=== PATIENT | female | born 1995 ===

== ENCOUNTER 2024-10-25 14:17 | Outpatient (CLI) | payer OTHER, BC, SELFPAY ==
--- NOTE | ~2024-10-25 | MR_ITS ---
MRI of the lumbar spine Clinical History: Back pain Technique: Axial T2-weighted images, and sagittal T1-weighted, T2-weighted, and T2 fat-sat images wer e acquired. Findings: There is no fracture or subluxation of the lumbar spine. Vertebral bodies maintain normal h eight and alignment. No bone marrow signal abnormality seen. No disc bulge or herniation seen at any lumbar level. No spinal canal stenosis or neural foraminal na rrowing seen in the lumbar spine. No epidural mass or collection seen. Minimal facet joint degenerati ve changes are present. Paravertebral soft tissues are unremarkable. Impression: Minimal facet joint degenerative changes, otherwise unremarkable exam. Reviewed, dictated and finalized at location . Impression: Minimal facet joint degenerative changes, otherwise unremarkable exam.
== END 2024-10-25 14:18 | disposition home or self-care (01) ==
DX: M51.26 Other intervertebral disc displacement, lumbar region (principal); M47.896 Other spondylosis, lumbar region
CPT/HCPCS: 72148